=== PATIENT | male | born 1965 | race Hispanic/Latino ===

== ENCOUNTER 2020-02-03 06:37 | Day surgery (SDC) | payer MEDICARE ==
--- NOTE | 2020-02-02 16:25 | NUR ---
DIALYSIS PATIENT HAS CHAIR WITH ANOTHER PATIENT THAT HAS TESTED POSITIVE IN HOUSE WANTED TO SEE IF THEY ALSO CAME IN POSITIVE. LAB SAID NO NEGATIVE. PER WEND[facility] IN INFECTION CONTROL [facility]AY GIVE INFO TO DIALYSIS SINCE THEY ARE A [facility].
[~2020-02-03] VITALS: Ht 182.9 cm; Wt 63.0 kg
[~2020-02-03 06:37] MED LIST: SODIUM CHLORIDE 0.9% 1000ML 1,000 ML IV ONE
[2020-02-03 07:10] VITALS: BP 175/101
[2020-02-03] MEDS ORDERED: ESCI10TA54 PO (07:40)
[2020-02-03] MEDS ORDERED: INSLAN SQ (07:40)
[2020-02-03] MEDS ORDERED: ATOR-2 PO (07:40)
[2020-02-03] MEDS ORDERED: PREG50CA63 PO (07:40)
[2020-02-03] MEDS ORDERED: METO25TA6 PO (07:40)
[2020-02-03] MEDS ORDERED: INSU100I3 SQ (07:40)
[2020-02-03] MEDS ORDERED: BISA-72 PO (07:40)
[2020-02-03] MEDS ORDERED: SUCR500T PO (07:40)
[2020-02-03 07:42] LABS: POTASSIUM 4.7 mmol/L (3.5-5.1)
[2020-02-03 07:53] LABS: CREATININE 9.2 mg/dL (0.5-1.5)
[2020-02-03] MEDS ORDERED: PROPOFOL 10 MG/ML 20ML VIAL IV ONE ×2 (08:30→08:54)
[2020-02-03 09:01] VITALS: BP 127/43
[2020-02-03 09:08] VITALS: BP 111/39
[2020-02-03 09:16] VITALS: BP 109/38
[2020-02-03 09:22] VITALS: BP 116/88
[2020-02-03 09:28] VITALS: BP 138/58
== END 2020-02-03 09:45 | disposition home or self-care (01) ==
LOC: DAH 06:37
PROVIDERS: ATTEND Internal Medicine Gastroenterology
DX: Z12.11 Encounter for screening for malignant neoplasm of colon (principal); D12.4 Benign neoplasm of descending colon; K63.89 Other specified diseases of intestine; F32.9 Major depressive disorder, single episode, unspecified; F41.9 Anxiety disorder, unspecified; E11.22 Type 2 diabetes mellitus with diabetic chronic kidney disease; I12.0 Hypertensive chronic kidney disease with stage 5 chronic kidney disease or end stage renal disease; N18.6 End stage renal disease; Z86.73 Personal history of transient ischemic attack (TIA), and cerebral infarction without residual deficits; Z11.59 Encounter for screening for other viral diseases
CPT/HCPCS: 36415 ×2; 45385; 80048; 82948 ×2; 88305; A4215; A4221; A4222; A4223; A4606; A4615; A4663; J2704 ×2; J7030; U0003

== ENCOUNTER → 2021-02-15 | Outpatient (CLI) | payer MEDICARE ==
[~2021-02-15] MED LIST changes: +0.9%NACL 1000ML 1,000 ML IV ONE; +ATOR-2 PO; +BISA-72 PO; +ESCI-8 PO; +INSLAN SQ; +INSU100I3 SQ; +METO25TA6 PO; +PREG50CA63 PO; -SODIUM CHLORIDE 0.9% 1000ML 1,000 ML IV ONE; +SUCR500T PO
== END | disposition home or self-care (01) ==
LOC: DAH 08:58 → ENDO 02-20 08:58 → DAH 02-20 08:58 → ENDO 02-20 15:30 → DAH 02-20 15:30 → EDSTATUS 02-20 18:47
PROVIDERS: ATTEND Internal Medicine Gastroenterology
DX: Z01.818 Encounter for other preprocedural examination (principal); Z86.010 Personal history of colon polyps
CPT/HCPCS: 87635; C9803; 82948; J7030

== ENCOUNTER 2021-10-10 14:27 | Inpatient (IN) | payer MEDICARE ==
[~2021-10-10] VITALS: Ht 167.6 cm; Wt 63.1 kg
[~2021-10-10 14:27] MED LIST changes: -0.9%NACL 1000ML 1,000 ML IV ONE; +AMLO-258 PO; -ESCI-8 PO; +FLUT15.845 NS; +MELA10TA2 PO; +METO50TA18 PO; +MULT-1367 PO; +OXYM-30 NS
[2021-10-10 15:15] LABS: BASOPHILS % (AUTO) 0.4 % (0.0-5.0); HEMATOCRIT 35.7 % (42-54); LYMPHOCYTES % (AUTO) 16.1 % (21.0-51.0); MEAN CORPUSCULAR HEMOGLOBIN 27.4 pg (27.0-33.0); MEAN CORPUSCULAR HGB CONC 30.8 g/dL (32.0-36.0); MEAN CORPUSCULAR VOLUME 88.8 fL (79-99); MONOCYTES % (AUTO) 3.9 % (3.0-13.0); NEUTROPHILS % (AUTO) 77.7 % (40.0-77.0); PLATELET COUNT (AUTO) 296 K/uL (130-400); RED BLOOD CELL COUNT(AUTO) 4.02 MIL/uL (4.50-6.20); RED CELL DISTRIBUTION WIDTH 13.9 % (11.0-15.5); WHITE BLOOD COUNT (AUTO) 14.6 K/uL (4.8-10.8)
[2021-10-10 15:24] LABS: CREATININE 7.3 mg/dL (0.5-1.5); POTASSIUM 4.1 mmol/L (3.5-5.1)
[2021-10-10 15:33] LABS: ALBUMIN 2.6 g/dL (3.5-5.0); BILIRUBIN,TOTAL 0.4 mg/dL (0.2-1.0); TOTAL PROTEIN, SERUM 7.2 g/dL (6.0-8.3)
[2021-10-10 16:02] LABS: INR 0.99 (0.85-1.15); PROTHROMBIN TIME 10.8 SEC (9.6-11.6)
[2021-10-10] MEDS ORDERED: NITROGLYCERIN 0.4 MG SL TAB SL PRN (19:00)
[2021-10-10] MEDS ORDERED: ACETAMINOPHEN 325 MG TAB PO PRN (19:00)
[2021-10-10 20:25] LABS: HEMOGLOBIN A1C 5.1 % (4.0-6.0)
[2021-10-10 20:53] LABS: INR 0.98 (0.85-1.15); PROTHROMBIN TIME 10.7 SEC (9.6-11.6)
[2021-10-10] MEDS: INSULIN HUMULIN R 100 UNIT/ML 3ML SQ SCH (21:00)
[2021-10-10] MEDS: Sucroferric Oxyhydroxide (Velphoro) 1,000 MG PO SCH (21:00)
[2021-10-10 21:25] LABS: THYROID STIMULATING HORMONE 3.54 uIU/mL (0.36-3.74)
[2021-10-10] MEDS: FAMOTIDINE 20MG VIAL IV SCH (21:46)
[2021-10-10] MEDS: METOPROLOL TARTRATE 50 MG TAB PO SCH (21:47)
[2021-10-10] MEDS: ATORVASTATIN 40 MG TABLET PO SCH (21:47)
[2021-10-10] MEDS: HEPARIN 5,000 UNIT VIAL SQ SCH (21:47)
[2021-10-10] MEDS: LIDOCAINE 5% TOPICAL PATCH TP SCH (21:48)
[2021-10-10 22:55] VITALS: BP 142/90
[2021-10-11] VITALS (21 sets, daily range): BP systolic 90–148; BP diastolic 55–84
[2021-10-11 04:23] LABS: BASOPHILS % (AUTO) 0.7 % (0.0-5.0); EOSINOPHILS % (AUTO) 1.8 % (0.0-8.0); HEMATOCRIT 32.5 % (42-54); LYMPHOCYTES % (AUTO) 24.3 % (21.0-51.0); MEAN CORPUSCULAR HEMOGLOBIN 28.4 pg (27.0-33.0); MEAN CORPUSCULAR VOLUME 88.8 fL (79-99); NEUTROPHILS % (AUTO) 66.5 % (40.0-77.0); PLATELET COUNT (AUTO) 288 K/uL (130-400); RED BLOOD CELL COUNT(AUTO) 3.66 MIL/uL (4.50-6.20); RED CELL DISTRIBUTION WIDTH 13.8 % (11.0-15.5); WHITE BLOOD COUNT (AUTO) 10.7 K/uL (4.8-10.8)
[2021-10-11 05:00] LABS: ALBUMIN 2.5 g/dL (3.5-5.0); MAGNESIUM 2.2 mg/dL (1.80-2.40); PHOSPHORUS 6.5 mg/dL (2.5-4.9); POTASSIUM 3.5 mmol/L (3.5-5.1)
[2021-10-11 05:02] LABS: CREATININE 8.1 mg/dL (0.5-1.5)
[2021-10-11] MEDS: INSULIN HUMULIN R 100 UNIT/ML 3ML SQ SCH ×4 (06:43→21:00)
[2021-10-11] MEDS ORDERED: LIDOCAINE 5% TOPICAL PATCH TP SCH (09:00)
[2021-10-11] MEDS: Sucroferric Oxyhydroxide (Velphoro) 1,000 MG PO SCH ×3 (09:00→21:00)
[2021-10-11] MEDS ORDERED: ATORVASTATIN CALCIUM 40 MG PO SCH (09:00)
[2021-10-11] MEDS ORDERED: NON-FORMULARY MEDICATION 1 EACH (Amlodipine Besylate 10 MG) PO SCH (09:00)
[2021-10-11] MEDS ORDERED: ATORVASTATIN 40 MG TABLET PO SCH (09:00)
[2021-10-11] MEDS: AMLODIPINE 5 MG TAB PO SCH (10:37)
[2021-10-11] MEDS: METOPROLOL TARTRATE 50 MG TAB PO SCH ×2 (10:37→21:48)
[2021-10-11] MEDS: LIDOCAINE 5% TOPICAL PATCH TP SCH (10:38)
[2021-10-11] MEDS: HEPARIN 5,000 UNIT VIAL SQ SCH ×3 (10:51→21:49)
[2021-10-11] MEDS: ASPIRIN 81 MG EC TAB PO SCH (14:17)
[2021-10-11] MEDS: FAMOTIDINE 20MG VIAL IV SCH (21:48)
[2021-10-11] MEDS: ATORVASTATIN 40 MG TABLET PO SCH (21:48)
[2021-10-12 04:18] VITALS: BP 136/74
[2021-10-12] MEDS ORDERED: DEXTROSE 50%-WATER 50 ML DISP.SYRIN IV ONE (05:14)
[2021-10-12] MEDS: INSULIN HUMULIN R 100 UNIT/ML 3ML SQ SCH ×4 (07:27→21:00)
[2021-10-12 07:30] VITALS: BP 123/46
[2021-10-12] MEDS ORDERED: HYDROMORPHONE 0.5 MG SYG (0.5MG/0.5ML) IVP PRN (08:00)
[2021-10-12] MEDS ORDERED: ZOSYN 3.375GM +NS 50ML IV SCH (08:00)
[2021-10-12] MEDS: METOPROLOL TARTRATE 50 MG TAB PO SCH (09:00)
[2021-10-12] MEDS: Sucroferric Oxyhydroxide (Velphoro) 1,000 MG PO SCH ×3 (09:00→21:00)
[2021-10-12] MEDS: ASPIRIN 81 MG EC TAB PO SCH (09:00)
[2021-10-12] MEDS ORDERED: ZOSYN 3.375GM+NS 50ML 50 ML IV SCH (09:00)
[2021-10-12] MEDS: AMLODIPINE 5 MG TAB PO SCH (09:00)
[2021-10-12 11:20] VITALS: BP 99/53
[2021-10-12] MEDS: LIDOCAINE 5% TOPICAL PATCH TP SCH (12:01)
[2021-10-12] MEDS: HEPARIN 5,000 UNIT VIAL SQ SCH ×3 (12:13→21:57)
[2021-10-12 15:20] VITALS: BP 138/51
[2021-10-12 16:26] LABS: BASOPHILS % (AUTO) 0.5 % (0.0-5.0); EOSINOPHILS % (AUTO) 1.1 % (0.0-8.0); HEMATOCRIT 31.8 % (42-54); LYMPHOCYTES % (AUTO) 25.3 % (21.0-51.0); MEAN CORPUSCULAR HEMOGLOBIN 28.3 pg (27.0-33.0); MEAN CORPUSCULAR HGB CONC 32.1 g/dL (32.0-36.0); MEAN CORPUSCULAR VOLUME 88.3 fL (79-99); NEUTROPHILS % (AUTO) 66.4 % (40.0-77.0); PLATELET COUNT (AUTO) 297 K/uL (130-400); RED CELL DISTRIBUTION WIDTH 13.8 % (11.0-15.5)
[2021-10-12 16:39] LABS: CREATININE 6.2 mg/dL (0.5-1.5); POTASSIUM 3.6 mmol/L (3.5-5.1)
[2021-10-12 16:43] LABS: ALBUMIN 2.6 g/dL (3.5-5.0); BILIRUBIN,TOTAL 0.4 mg/dL (0.2-1.0); TOTAL PROTEIN, SERUM 6.9 g/dL (6.0-8.3)
[2021-10-12 16:44] LABS: ABG BASE EXCESS 1.1 mmol/L (-2.0-3.0); ABG HCO3 25.5 mmol/L (21.0-28.0); ABG OXYGEN SATURATION 95.9 % (95.0-99.0); ABG PCO2 40 mmHg (35-48)
[2021-10-12 17:00] LABS: B-TYPE NATRIURETIC PEPTIDE 303 pg/mL (0-100)
[2021-10-12 20:16] VITALS: BP 119/50
[2021-10-12] MEDS: FAMOTIDINE 20MG VIAL IV SCH (21:55)
[2021-10-12] MEDS: ATORVASTATIN 40 MG TABLET PO SCH (21:56)
[2021-10-13] VITALS (23 sets, daily range): BP systolic 85–169; BP diastolic 52–95
[2021-10-13] MEDS: METOPROLOL TARTRATE 50 MG TAB PO SCH ×3 (00:42→21:00)
[2021-10-13 06:07] LABS: BASOPHILS % (AUTO) 0.7 % (0.0-5.0); EOSINOPHILS % (AUTO) 1.3 % (0.0-8.0); HEMATOCRIT 32.1 % (42-54); LYMPHOCYTES % (AUTO) 28.4 % (21.0-51.0); MEAN CORPUSCULAR HEMOGLOBIN 27.8 pg (27.0-33.0); MEAN CORPUSCULAR HGB CONC 31.8 g/dL (32.0-36.0); MEAN CORPUSCULAR VOLUME 87.5 fL (79-99); MONOCYTES % (AUTO) 6.8 % (3.0-13.0); NEUTROPHILS % (AUTO) 62.1 % (40.0-77.0); PLATELET COUNT (AUTO) 326 K/uL (130-400); RED BLOOD CELL COUNT(AUTO) 3.67 MIL/uL (4.50-6.20); RED CELL DISTRIBUTION WIDTH 13.6 % (11.0-15.5); WHITE BLOOD COUNT (AUTO) 9.2 K/uL (4.8-10.8)
[2021-10-13 06:23] LABS: ALBUMIN 2.5 g/dL (3.5-5.0); BILIRUBIN,TOTAL 0.4 mg/dL (0.2-1.0); CREATININE 7.2 mg/dL (0.5-1.5); PHOSPHORUS 5.3 mg/dL (2.5-4.9); POTASSIUM 3.6 mmol/L (3.5-5.1); TOTAL PROTEIN, SERUM 6.9 g/dL (6.0-8.3)
[2021-10-13] MEDS: INSULIN HUMULIN R 100 UNIT/ML 3ML SQ SCH ×4 (06:30→21:00)
[2021-10-13] MEDS: Sucroferric Oxyhydroxide (Velphoro) 1,000 MG PO SCH ×3 (09:00→20:04)
[2021-10-13] MEDS: AMLODIPINE 5 MG TAB PO SCH (10:10)
[2021-10-13] MEDS: ASPIRIN 81 MG EC TAB PO SCH (10:10)
[2021-10-13] MEDS: LIDOCAINE 5% TOPICAL PATCH TP SCH (10:11)
[2021-10-13] MEDS: HEPARIN 5,000 UNIT VIAL SQ SCH ×2 (14:00→22:03)
[2021-10-13] MEDS ORDERED: PHARMACY COMMUNICATION MISC SCH (17:00)
[2021-10-13] MEDS: HEPARIN 5,000 UNIT VIAL IJ PRN (17:34)
[2021-10-13] MEDS ORDERED: METOPROLOL TARTRATE 25 MG TAB ONE (21:00)
[2021-10-13] MEDS: ATORVASTATIN 40 MG TABLET PO SCH (21:04)
[2021-10-13] MEDS: FAMOTIDINE 20MG VIAL IV SCH (21:04)
[2021-10-14 00:20] VITALS: BP 129/50
[2021-10-14 04:20] VITALS: BP 113/55
[2021-10-14 04:31] LABS: BASOPHILS % (AUTO) 0.8 % (0.0-5.0); HEMATOCRIT 34.5 % (42-54); LYMPHOCYTES % (AUTO) 25.3 % (21.0-51.0); MEAN CORPUSCULAR HEMOGLOBIN 28.3 pg (27.0-33.0); MEAN CORPUSCULAR HGB CONC 32.8 g/dL (32.0-36.0); MEAN CORPUSCULAR VOLUME 86.3 fL (79-99); MONOCYTES % (AUTO) 7.1 % (3.0-13.0); NEUTROPHILS % (AUTO) 65.2 % (40.0-77.0); PLATELET COUNT (AUTO) 375 K/uL (130-400); RED CELL DISTRIBUTION WIDTH 13.5 % (11.0-15.5); WHITE BLOOD COUNT (AUTO) 9.3 K/uL (4.8-10.8)
[2021-10-14 04:50] LABS: ALBUMIN 2.8 g/dL (3.5-5.0); BILIRUBIN,TOTAL 0.4 mg/dL (0.2-1.0); CREATININE 4.8 mg/dL (0.5-1.5); POTASSIUM 3.6 mmol/L (3.5-5.1); TOTAL PROTEIN, SERUM 7.3 g/dL (6.0-8.3)
[2021-10-14] MEDS: INSULIN HUMULIN R 100 UNIT/ML 3ML SQ SCH ×4 (06:15→21:00)
[2021-10-14] MEDS: HEPARIN 5,000 UNIT VIAL SQ SCH ×3 (06:28→21:38)
[2021-10-14 07:59] VITALS: BP 134/76
[2021-10-14] MEDS: Sucroferric Oxyhydroxide (Velphoro) 1,000 MG PO SCH ×3 (09:00→19:44)
[2021-10-14] MEDS: LIDOCAINE 5% TOPICAL PATCH TP SCH (10:29)
[2021-10-14] MEDS: AMLODIPINE 5 MG TAB PO SCH (10:29)
[2021-10-14] MEDS: ASPIRIN 81 MG EC TAB PO SCH (10:29)
[2021-10-14] MEDS: METOPROLOL TARTRATE 50 MG TAB PO SCH ×2 (10:29→22:03)
[2021-10-14 11:49] VITALS: BP 136/70
[2021-10-14 16:58] VITALS: BP 122/68
[2021-10-14 20:16] VITALS: BP 107/72
[2021-10-14] MEDS: FAMOTIDINE 20MG VIAL IV SCH (22:03)
[2021-10-14] MEDS: ATORVASTATIN 40 MG TABLET PO SCH (22:03)
[2021-10-14] MEDS: LACTULOSE 20 GM/30 ML UDCUP PO SCH (22:04)
[2021-10-15] VITALS (19 sets, daily range): BP systolic 87–152; BP diastolic 57–81
[2021-10-15 04:57] LABS: HEMATOCRIT 34.4 % (42-54); MEAN CORPUSCULAR HEMOGLOBIN 27.7 pg (27.0-33.0); MEAN CORPUSCULAR VOLUME 86.6 fL (79-99); PLATELET COUNT (AUTO) 394 K/uL (130-400); RED BLOOD CELL COUNT(AUTO) 3.97 MIL/uL (4.50-6.20); RED CELL DISTRIBUTION WIDTH 13.4 % (11.0-15.5); WHITE BLOOD COUNT (AUTO) 12.3 K/uL (4.8-10.8)
[2021-10-15 05:10] LABS: ALBUMIN 2.9 g/dL (3.5-5.0); BILIRUBIN,TOTAL 0.4 mg/dL (0.2-1.0); CREATININE 6.6 mg/dL (0.5-1.5); MAGNESIUM 2.2 mg/dL (1.80-2.40); PHOSPHORUS 4.6 mg/dL (2.5-4.9); POTASSIUM 3.8 mmol/L (3.5-5.1); TOTAL PROTEIN, SERUM 7.5 g/dL (6.0-8.3)
[2021-10-15 06:11] LABS: BAND NEUTROPHILS % (MANUAL) 2 % (0-2); EOSINOPHILS % (MANUAL) 1 % (1-6); LYMPHOCYTES % (MANUAL) 13 % (22-44); MAN.DIFF COMMENT-IMPRESSION MANUAL DIFFERENTIAL; MONOCYTES % (MANUAL) 3 % (2-9); REACTIVE LYMPHOCYTES 2 % (0-0); SEGMENTED NEUTROPHILS % 79 % (40-70)
[2021-10-15] MEDS: INSULIN HUMULIN R 100 UNIT/ML 3ML SQ SCH ×4 (06:11→21:00)
[2021-10-15 06:12] LABS: PLATELET MORPHOLOGY COMMENT ADEQUATE
[2021-10-15] MEDS: HEPARIN 5,000 UNIT VIAL SQ SCH ×3 (06:27→22:19)
[2021-10-15] MEDS: ACETAMINOPHEN 325 MG TAB PO PRN ×2 (06:29→16:35)
[2021-10-15] MEDS: Sucroferric Oxyhydroxide (Velphoro) 1,000 MG PO SCH ×3 (09:00→21:00)
[2021-10-15] MEDS: ASPIRIN 81 MG EC TAB PO SCH (09:08)
[2021-10-15] MEDS: METOPROLOL TARTRATE 50 MG TAB PO SCH ×2 (09:08→22:19)
[2021-10-15] MEDS: LACTULOSE 20 GM/30 ML UDCUP PO SCH ×2 (09:08→22:18)
[2021-10-15] MEDS: LIDOCAINE 5% TOPICAL PATCH TP SCH (09:08)
[2021-10-15] MEDS: AMLODIPINE 5 MG TAB PO SCH (09:08)
[2021-10-15] MEDS: HEPARIN 5,000 UNIT VIAL IJ PRN (22:05)
[2021-10-15] MEDS: FAMOTIDINE 20MG VIAL IV SCH (22:18)
[2021-10-15] MEDS: ATORVASTATIN 40 MG TABLET PO SCH (22:18)
[2021-10-16] VITALS: BP_SYST 119; BP_SYST 126; BP_DIAS 76; BP_DIAS 77
[2021-10-16 04:00] VITALS: BP 126/76
[2021-10-16] MEDS: HEPARIN 5,000 UNIT VIAL SQ SCH ×3 (05:42→21:59)
[2021-10-16] MEDS: INSULIN HUMULIN R 100 UNIT/ML 3ML SQ SCH ×4 (06:14→21:00)
[2021-10-16] MEDS: Sucroferric Oxyhydroxide (Velphoro) 1,000 MG PO SCH ×3 (09:00→21:00)
[2021-10-16 09:25] VITALS: BP 119/74
[2021-10-16] MEDS: METOPROLOL TARTRATE 50 MG TAB PO SCH ×2 (09:57→21:41)
[2021-10-16] MEDS: AMLODIPINE 5 MG TAB PO SCH (09:57)
[2021-10-16] MEDS: ASPIRIN 81 MG EC TAB PO SCH (09:57)
[2021-10-16] MEDS: LACTULOSE 20 GM/30 ML UDCUP PO SCH ×2 (09:58→21:40)
[2021-10-16] MEDS: LIDOCAINE 5% TOPICAL PATCH TP SCH (09:58)
[2021-10-16 11:07] VITALS: BP 138/85
[2021-10-16 16:09] VITALS: BP 115/70
[2021-10-16 20:00] VITALS: BP 125/75
[2021-10-16] MEDS: FAMOTIDINE 20MG VIAL IV SCH (21:40)
[2021-10-16] MEDS: ATORVASTATIN 40 MG TABLET PO SCH (21:41)
[2021-10-16] MEDS: ACETAMINOPHEN 325 MG TAB PO PRN (22:02)
[2021-10-17] VITALS (20 sets, daily range): BP systolic 94–140; BP diastolic 42–100
[2021-10-17] MEDS: HEPARIN 5,000 UNIT VIAL SQ SCH ×3 (06:00→21:09)
[2021-10-17] MEDS: INSULIN HUMULIN R 100 UNIT/ML 3ML SQ SCH ×4 (06:52→21:00)
[2021-10-17] MEDS: Sucroferric Oxyhydroxide (Velphoro) 1,000 MG PO SCH ×3 (09:00→21:00)
[2021-10-17] MEDS: LIDOCAINE 5% TOPICAL PATCH TP SCH (09:00)
[2021-10-17 09:16] LABS: CREATININE 6.7 mg/dL (0.5-1.5); POTASSIUM 3.8 mmol/L (3.5-5.1)
[2021-10-17] MEDS: METOPROLOL TARTRATE 50 MG TAB PO SCH ×2 (09:48→21:04)
[2021-10-17] MEDS: LACTULOSE 20 GM/30 ML UDCUP PO SCH ×2 (09:48→21:02)
[2021-10-17] MEDS: ASPIRIN 81 MG EC TAB PO SCH (09:48)
[2021-10-17] MEDS: AMLODIPINE 5 MG TAB PO SCH (09:48)
[2021-10-17 13:09] LABS: HEMATOCRIT 35.7 % (42-54); MEAN CORPUSCULAR HEMOGLOBIN 28.2 pg (27.0-33.0); MEAN CORPUSCULAR HGB CONC 32.2 g/dL (32.0-36.0); MEAN CORPUSCULAR VOLUME 87.5 fL (79-99); RED BLOOD CELL COUNT(AUTO) 4.08 MIL/uL (4.50-6.20); RED CELL DISTRIBUTION WIDTH 13.9 % (11.0-15.5); WHITE BLOOD COUNT (AUTO) 17.3 K/uL (4.8-10.8)
[2021-10-17 14:21] LABS: HEPATITIS B SURFACE ANTIGEN Non-Reactive (Negative)
[2021-10-17] MEDS: HEPARIN 5,000 UNIT VIAL IJ PRN (18:15)
[2021-10-17] MEDS ORDERED: CEFTRIAXONE 1G VIAL IVP SCH (20:30)
[2021-10-17] MEDS: FAMOTIDINE 20MG VIAL IV SCH (21:02)
[2021-10-17] MEDS: ATORVASTATIN 40 MG TABLET PO SCH (21:02)
[2021-10-17] MEDS: ACETAMINOPHEN 325 MG TAB PO PRN (21:05)
[2021-10-18] VITALS: BP 118/73
[2021-10-18 03:57] LABS: HEMATOCRIT 38.4 % (42-54); MEAN CORPUSCULAR HEMOGLOBIN 27.9 pg (27.0-33.0); MEAN CORPUSCULAR HGB CONC 31.5 g/dL (32.0-36.0); MEAN CORPUSCULAR VOLUME 88.7 fL (79-99); RED BLOOD CELL COUNT(AUTO) 4.33 MIL/uL (4.50-6.20); WHITE BLOOD COUNT (AUTO) 23.7 K/uL (4.8-10.8)
[2021-10-18 04:00] VITALS: BP 96/61
[2021-10-18 04:05] LABS: CREATININE 4.6 mg/dL (0.5-1.5); POTASSIUM 3.5 mmol/L (3.5-5.1)
[2021-10-18] MEDS: HEPARIN 5,000 UNIT VIAL SQ SCH ×3 (05:34→21:42)
[2021-10-18] MEDS: INSULIN HUMULIN R 100 UNIT/ML 3ML SQ SCH ×4 (05:35→21:43)
[2021-10-18 08:00] VITALS: BP 89/62
[2021-10-18] MEDS: Sucroferric Oxyhydroxide (Velphoro) 1,000 MG PO SCH ×3 (09:00→21:00)
[2021-10-18] MEDS ORDERED: PHARMACY COMMUNICATION MISC SCH (09:30)
[2021-10-18] MEDS: METOPROLOL TARTRATE 50 MG TAB PO SCH ×2 (10:09→21:40)
[2021-10-18] MEDS: AMLODIPINE 5 MG TAB PO SCH (10:09)
[2021-10-18] MEDS: LACTULOSE 20 GM/30 ML UDCUP PO SCH ×2 (10:09→21:41)
[2021-10-18] MEDS: ASPIRIN 81 MG EC TAB PO SCH (10:10)
[2021-10-18] MEDS: LIDOCAINE 5% TOPICAL PATCH TP SCH (10:10)
[2021-10-18 12:00] VITALS: BP 104/63
[2021-10-18] MEDS ORDERED: VANCOMYCIN 1G/250ML KIT 250 ML IV SCH (12:00)
[2021-10-18] MEDS ORDERED: VANCOMYCIN 1G VIAL IVPB ONE (12:00)
[2021-10-18 16:00] VITALS: BP 92/64
[2021-10-18 20:47] VITALS: BP 113/70
[2021-10-18] MEDS: ATORVASTATIN 40 MG TABLET PO SCH (21:40)
[2021-10-18] MEDS: FAMOTIDINE 20MG VIAL IV SCH (21:41)
[2021-10-19] VITALS (18 sets, daily range): BP systolic 78–125; BP diastolic 41–76
[2021-10-19 04:44] LABS: HEMATOCRIT 38.4 % (42-54); MEAN CORPUSCULAR HEMOGLOBIN 27.8 pg (27.0-33.0); MEAN CORPUSCULAR HGB CONC 31.5 g/dL (32.0-36.0); MEAN CORPUSCULAR VOLUME 88.1 fL (79-99); RED BLOOD CELL COUNT(AUTO) 4.36 MIL/uL (4.50-6.20); RED CELL DISTRIBUTION WIDTH 14.6 % (11.0-15.5); WHITE BLOOD COUNT (AUTO) 28.2 K/uL (4.8-10.8)
[2021-10-19 04:52] LABS: ALBUMIN 2.5 g/dL (3.5-5.0); CREATININE 6.5 mg/dL (0.5-1.5); POTASSIUM 4.4 mmol/L (3.5-5.1)
[2021-10-19] MEDS: HEPARIN 5,000 UNIT VIAL SQ SCH ×3 (05:54→21:10)
[2021-10-19] MEDS: INSULIN HUMULIN R 100 UNIT/ML 3ML SQ SCH ×4 (06:49→21:11)
[2021-10-19] MEDS: BALSAM PERU/CASTOR OIL 60 GM TUBE TP SCH ×3 (09:00→21:06)
[2021-10-19] MEDS: LIDOCAINE 5% TOPICAL PATCH TP SCH (09:00)
[2021-10-19] MEDS: ASPIRIN 81 MG EC TAB PO SCH (09:00)
[2021-10-19] MEDS: LACTULOSE 20 GM/30 ML UDCUP PO SCH ×2 (09:00→21:04)
[2021-10-19] MEDS: Sucroferric Oxyhydroxide (Velphoro) 1,000 MG PO SCH ×3 (09:00→21:00)
[2021-10-19] MEDS: FLUCONAZOLE 200 MG/NS 100 ML 100 ML IV SCH (12:30)
[2021-10-19] MEDS ORDERED: VANCOMYCIN PROTOCOL PER PHARMACY IV SCH (12:30)
[2021-10-19] MEDS ORDERED: FLUCONAZOLE 400 MG/NS 200 ML 200 ML IV SCH (12:30)
[2021-10-19] MEDS: HEPARIN 5,000 UNIT VIAL IJ PRN (13:37)
[2021-10-19] MEDS: GENTAMICIN 15 GM CREAM TP SCH ×2 (14:00→21:06)
[2021-10-19 14:15] LABS: CRP QUANTITATIVE 343.4 mg/L (0.00-9.0)
[2021-10-19] MEDS: VANCOMYCIN 1G/250ML KIT 250 ML IV SCH (14:50)
[2021-10-19] MEDS: METRONIDAZOLE 500MG/100ML BAG 100 ML IVPB SCH ×2 (15:14→21:06)
[2021-10-19] MEDS: ZOSYN 3.375GM +NS 50ML IV SCH ×2 (15:28→23:56)
[2021-10-19] MEDS: ATORVASTATIN 40 MG TABLET PO SCH (21:04)
[2021-10-19] MEDS: FAMOTIDINE 20MG VIAL IV SCH (21:04)
[2021-10-20] VITALS (7 sets, daily range): BP systolic 91–113; BP diastolic 56–67
[2021-10-20 04:30] LABS: HEMATOCRIT 33.8 % (42-54); MEAN CORPUSCULAR HEMOGLOBIN 28.3 pg (27.0-33.0); MEAN CORPUSCULAR VOLUME 88.7 fL (79-99); RED BLOOD CELL COUNT(AUTO) 3.81 MIL/uL (4.50-6.20); RED CELL DISTRIBUTION WIDTH 14.7 % (11.0-15.5)
[2021-10-20 05:07] LABS: ALBUMIN 2.5 g/dL (3.5-5.0); CREATININE 5.2 mg/dL (0.5-1.5); POTASSIUM 3.6 mmol/L (3.5-5.1)
[2021-10-20] MEDS: METRONIDAZOLE 500MG/100ML BAG 100 ML IVPB SCH (05:37)
[2021-10-20] MEDS: HEPARIN 5,000 UNIT VIAL SQ SCH ×3 (05:43→22:01)
[2021-10-20] MEDS: INSULIN HUMULIN R 100 UNIT/ML 3ML SQ SCH ×4 (06:17→20:53)
[2021-10-20] MEDS: ASPIRIN 81 MG EC TAB PO SCH (08:26)
[2021-10-20] MEDS: ACETAMINOPHEN 325 MG TAB PO PRN (08:27)
[2021-10-20] MEDS: LIDOCAINE 5% TOPICAL PATCH TP SCH (08:27)
[2021-10-20] MEDS: BALSAM PERU/CASTOR OIL 60 GM TUBE TP SCH ×3 (08:28→20:36)
[2021-10-20] MEDS: Sucroferric Oxyhydroxide (Velphoro) 1,000 MG PO SCH ×3 (09:00→20:38)
[2021-10-20] MEDS: GENTAMICIN 15 GM CREAM TP SCH ×2 (10:17→20:35)
[2021-10-20] MEDS: ZOSYN 3.375GM +NS 50ML IV SCH (11:58)
[2021-10-20] MEDS: FAMOTIDINE 20MG VIAL IV SCH (20:34)
[2021-10-20] MEDS: ATORVASTATIN 40 MG TABLET PO SCH (20:35)
[2021-10-21] MEDS: ZOSYN 3.375GM +NS 50ML IV SCH ×2 (00:32→11:53)
[2021-10-21 04:02] VITALS: BP 90/57
[2021-10-21 04:42] LABS: HEMATOCRIT 32.9 % (42-54); MEAN CORPUSCULAR HEMOGLOBIN 28.5 pg (27.0-33.0); MEAN CORPUSCULAR HGB CONC 31.9 g/dL (32.0-36.0); MEAN CORPUSCULAR VOLUME 89.4 fL (79-99); PLATELET COUNT (AUTO) 389 K/uL (130-400); RED BLOOD CELL COUNT(AUTO) 3.68 MIL/uL (4.50-6.20); RED CELL DISTRIBUTION WIDTH 14.6 % (11.0-15.5); WHITE BLOOD COUNT (AUTO) 9.3 K/uL (4.8-10.8)
[2021-10-21 05:09] LABS: ALBUMIN 2.3 g/dL (3.5-5.0); BILIRUBIN,TOTAL 0.4 mg/dL (0.2-1.0); CREATININE 6.6 mg/dL (0.5-1.5); PHOSPHORUS 4.5 mg/dL (2.5-4.9); POTASSIUM 3.4 mmol/L (3.5-5.1); TOTAL PROTEIN, SERUM 7.3 g/dL (6.0-8.3)
[2021-10-21 05:11] LABS: BAND NEUTROPHILS % (MANUAL) 12 % (0-2); EOSINOPHILS % (MANUAL) 2 % (1-6); LYMPHOCYTES % (MANUAL) 14 % (22-44); MONOCYTES % (MANUAL) 8 % (2-9); SEGMENTED NEUTROPHILS % 64 % (40-70)
[2021-10-21 05:12] LABS: MAN.DIFF COMMENT-IMPRESSION MANUAL DIFFERENTIAL; PLATELET MORPHOLOGY COMMENT ADEQUATE
[2021-10-21] MEDS: HEPARIN 5,000 UNIT VIAL SQ SCH ×3 (05:33→22:00)
[2021-10-21] MEDS: INSULIN HUMULIN R 100 UNIT/ML 3ML SQ SCH ×4 (06:33→21:00)
[2021-10-21 07:10] VITALS: BP 84/43
[2021-10-21] MEDS: Sucroferric Oxyhydroxide (Velphoro) 1,000 MG PO SCH ×3 (09:00→21:00)
[2021-10-21] MEDS: LIDOCAINE 5% TOPICAL PATCH TP SCH (09:09)
[2021-10-21] MEDS: ASPIRIN 81 MG EC TAB PO SCH (09:09)
[2021-10-21] MEDS: BALSAM PERU/CASTOR OIL 60 GM TUBE TP SCH ×3 (09:10→22:07)
[2021-10-21] MEDS: GENTAMICIN 15 GM CREAM TP SCH ×2 (09:10→22:07)
[2021-10-21] MEDS: FLUCONAZOLE 200 MG/NS 100 ML 100 ML IV SCH (11:00)
[2021-10-21 11:35] VITALS: BP 99/51
[2021-10-21] MEDS: VANCOMYCIN 1G/250ML KIT 250 ML IV SCH (12:26)
[2021-10-21] MEDS: MIDODRINE HCL 5 MG TABLET PO SCH ×3 (14:12→22:15)
[2021-10-21 15:10] VITALS: BP 133/72
[2021-10-21 20:00] VITALS: BP 142/85
[2021-10-21] MEDS: FAMOTIDINE 20MG VIAL IV SCH (22:05)
[2021-10-21] MEDS: ATORVASTATIN 40 MG TABLET PO SCH (22:05)
[2021-10-21] MEDS: ACETAMINOPHEN 325 MG TAB PO PRN (22:15)
[2021-10-22] VITALS (23 sets, daily range): BP systolic 80–155; BP diastolic 33–96
[2021-10-22] MEDS: ZOSYN 3.375GM +NS 50ML IV SCH ×2 (00:51→12:30)
[2021-10-22 05:08] LABS: MEAN CORPUSCULAR HEMOGLOBIN 28.1 pg (27.0-33.0); MEAN CORPUSCULAR HGB CONC 31.2 g/dL (32.0-36.0); MEAN CORPUSCULAR VOLUME 90.2 fL (79-99); NUCLEATED RED BLOOD CELLS 0.2 % (0.0-0.19); PLATELET COUNT (AUTO) 416 K/uL (130-400); RED BLOOD CELL COUNT(AUTO) 3.66 MIL/uL (4.50-6.20); RED CELL DISTRIBUTION WIDTH 14.5 % (11.0-15.5); WHITE BLOOD COUNT (AUTO) 12.4 K/uL (4.8-10.8)
[2021-10-22 05:21] LABS: BAND NEUTROPHILS % (MANUAL) 7 % (0-2); EOSINOPHILS % (MANUAL) 2 % (1-6); LYMPHOCYTES % (MANUAL) 13 % (22-44); MAN.DIFF COMMENT-IMPRESSION MANUAL DIFFERENTIAL; MONOCYTES % (MANUAL) 9 % (2-9); PLATELET MORPHOLOGY COMMENT ADEQUATE; SEGMENTED NEUTROPHILS % 69 % (40-70)
[2021-10-22 05:24] LABS: CREATININE 7.5 mg/dL (0.5-1.5); PHOSPHORUS 4.8 mg/dL (2.5-4.9); POTASSIUM 3.3 mmol/L (3.5-5.1)
[2021-10-22] MEDS: INSULIN HUMULIN R 100 UNIT/ML 3ML SQ SCH ×4 (06:40→21:00)
[2021-10-22] MEDS: Sucroferric Oxyhydroxide (Velphoro) 1,000 MG PO SCH ×3 (09:00→21:00)
[2021-10-22] MEDS: MIDODRINE HCL 5 MG TABLET PO SCH ×3 (10:06→21:06)
[2021-10-22] MEDS: LIDOCAINE 5% TOPICAL PATCH TP SCH (10:06)
[2021-10-22] MEDS: BALSAM PERU/CASTOR OIL 60 GM TUBE TP SCH ×3 (10:06→21:07)
[2021-10-22] MEDS: ASPIRIN 81 MG EC TAB PO SCH (10:06)
[2021-10-22] MEDS: GENTAMICIN 15 GM CREAM TP SCH ×2 (10:06→21:07)
[2021-10-22] MEDS: HEPARIN 5,000 UNIT VIAL IJ PRN (15:53)
[2021-10-22] MEDS: ATORVASTATIN 40 MG TABLET PO SCH (21:06)
[2021-10-22] MEDS: FAMOTIDINE 20MG VIAL IV SCH (21:07)
[2021-10-22] MEDS: ACETAMINOPHEN 325 MG TAB PO PRN (21:08)
[2021-10-23] VITALS: BP 113/72
[2021-10-23] MEDS: ZOSYN 3.375GM +NS 50ML IV SCH ×3 (01:24→23:47)
[2021-10-23 04:00] VITALS: BP 91/71
[2021-10-23 04:36] LABS: HEMATOCRIT 33.1 % (42-54); MEAN CORPUSCULAR VOLUME 87.3 fL (79-99); PLATELET COUNT (AUTO) 384 K/uL (130-400); RED BLOOD CELL COUNT(AUTO) 3.79 MIL/uL (4.50-6.20); RED CELL DISTRIBUTION WIDTH 14.2 % (11.0-15.5); WHITE BLOOD COUNT (AUTO) 12.6 K/uL (4.8-10.8)
[2021-10-23 04:59] LABS: ALBUMIN 2.2 g/dL (3.5-5.0); BILIRUBIN,TOTAL 0.4 mg/dL (0.2-1.0); CREATININE 4.6 mg/dL (0.5-1.5); POTASSIUM 3.3 mmol/L (3.5-5.1); TOTAL PROTEIN, SERUM 7.2 g/dL (6.0-8.3)
[2021-10-23 05:39] LABS: BAND NEUTROPHILS % (MANUAL) 4 % (0-2); BASOPHILS % (MANUAL) 1 % (0-2); LYMPHOCYTES % (MANUAL) 22 % (22-44); MAN.DIFF COMMENT-IMPRESSION MANUAL DIFFERENTIAL; MONOCYTES % (MANUAL) 9 % (2-9); PLATELET MORPHOLOGY COMMENT ADEQUATE; REACTIVE LYMPHOCYTES 3 % (0-0); SEGMENTED NEUTROPHILS % 61 % (40-70)
[2021-10-23] MEDS: INSULIN HUMULIN R 100 UNIT/ML 3ML SQ SCH ×4 (06:46→20:12)
[2021-10-23] MEDS: Sucroferric Oxyhydroxide (Velphoro) 1,000 MG PO SCH ×3 (08:20→20:12)
[2021-10-23] MEDS: ASPIRIN 81 MG EC TAB PO SCH (08:20)
[2021-10-23] MEDS: MIDODRINE HCL 5 MG TABLET PO SCH ×3 (08:20→20:11)
[2021-10-23] MEDS: GENTAMICIN 15 GM CREAM TP SCH ×2 (08:21→20:13)
[2021-10-23] MEDS: LIDOCAINE 5% TOPICAL PATCH TP SCH (08:22)
[2021-10-23] MEDS: BALSAM PERU/CASTOR OIL 60 GM TUBE TP SCH ×3 (08:22→20:12)
[2021-10-23] MEDS: FLUCONAZOLE 200 MG/NS 100 ML 100 ML IV SCH (12:30)
[2021-10-23] MEDS: VANCOMYCIN 1G/250ML KIT 250 ML IV SCH (13:00)
[2021-10-23 13:03] VITALS: BP 93/76
[2021-10-23 17:21] VITALS: BP_SYST 118; BP_SYST 147; BP_DIAS 67; BP_DIAS 71
[2021-10-23 20:00] VITALS: BP 144/75
[2021-10-23] MEDS: ATORVASTATIN 40 MG TABLET PO SCH (20:11)
[2021-10-23] MEDS: FAMOTIDINE 20MG VIAL IV SCH (20:12)
[2021-10-24] VITALS (21 sets, daily range): BP systolic 86–157; BP diastolic 46–87
[2021-10-24 04:51] LABS: BASOPHILS % (AUTO) 0.3 % (0.0-5.0); EOSINOPHILS % (AUTO) 1.1 % (0.0-8.0); HEMATOCRIT 31.8 % (42-54); LYMPHOCYTES % (AUTO) 19.7 % (21.0-51.0); MEAN CORPUSCULAR HEMOGLOBIN 29.1 pg (27.0-33.0); MEAN CORPUSCULAR HGB CONC 32.7 g/dL (32.0-36.0); MEAN CORPUSCULAR VOLUME 88.8 fL (79-99); MONOCYTES % (AUTO) 11.3 % (3.0-13.0); NEUTROPHILS % (AUTO) 61.8 % (40.0-77.0); PLATELET COUNT (AUTO) 412 K/uL (130-400); RED BLOOD CELL COUNT(AUTO) 3.58 MIL/uL (4.50-6.20); RED CELL DISTRIBUTION WIDTH 14.2 % (11.0-15.5); WHITE BLOOD COUNT (AUTO) 11.7 K/uL (4.8-10.8)
[2021-10-24 05:12] LABS: ALBUMIN 2.2 g/dL (3.5-5.0); BILIRUBIN,TOTAL 0.4 mg/dL (0.2-1.0); CREATININE 6.2 mg/dL (0.5-1.5); POTASSIUM 3.2 mmol/L (3.5-5.1)
[2021-10-24] MEDS: INSULIN HUMULIN R 100 UNIT/ML 3ML SQ SCH ×3 (05:17→16:30)
[2021-10-24] MEDS: Sucroferric Oxyhydroxide (Velphoro) 1,000 MG PO SCH ×2 (08:29→14:00)
[2021-10-24] MEDS: MIDODRINE HCL 5 MG TABLET PO SCH ×2 (08:33→14:56)
[2021-10-24] MEDS: ASPIRIN 81 MG EC TAB PO SCH (08:36)
[2021-10-24] MEDS: LIDOCAINE 5% TOPICAL PATCH TP SCH (08:44)
[2021-10-24] MEDS: BALSAM PERU/CASTOR OIL 60 GM TUBE TP SCH ×2 (08:53→14:58)
[2021-10-24] MEDS: GENTAMICIN 15 GM CREAM TP SCH (08:54)
[2021-10-24] MEDS: ZOSYN 3.375GM +NS 50ML IV SCH (12:30)
[2021-10-24] MEDS ORDERED: AEC81 PO (16:55)
== END 2021-10-24 20:58 | DRG 64 ==
LOC: EDH 14:27 → EDHIP 18:33 → 4CH 23:05
PROVIDERS: ADMIT Internal Medicine; ATTEND Internal Medicine
PROC: 5A1D70Z Performance of Urinary Filtration, Intermittent, Less than 6 Hours Per Day (ICD-10-PCS; principal; 2021-10-11)
PROC: 5A1D70Z Performance of Urinary Filtration, Intermittent, Less than 6 Hours Per Day (ICD-10-PCS; 2021-10-13)
PROC: 5A1D70Z Performance of Urinary Filtration, Intermittent, Less than 6 Hours Per Day (ICD-10-PCS; 2021-10-15)
PROC: 5A1D70Z Performance of Urinary Filtration, Intermittent, Less than 6 Hours Per Day (ICD-10-PCS; 2021-10-17)
PROC: 5A1D70Z Performance of Urinary Filtration, Intermittent, Less than 6 Hours Per Day (ICD-10-PCS; 2021-10-19)
PROC: 5A1D70Z Performance of Urinary Filtration, Intermittent, Less than 6 Hours Per Day (ICD-10-PCS; 2021-10-22)
PROC: 5A1D70Z Performance of Urinary Filtration, Intermittent, Less than 6 Hours Per Day (ICD-10-PCS; 2021-10-24)
DX: I63.81 Other cerebral infarction due to occlusion or stenosis of small artery (principal); A41.9 Sepsis, unspecified organism; N18.6 End stage renal disease; I12.0 Hypertensive chronic kidney disease with stage 5 chronic kidney disease or end stage renal disease; G93.40 Encephalopathy, unspecified; S40.021A Contusion of right upper arm, initial encounter; S40.022A Contusion of left upper arm, initial encounter; S80.11XA Contusion of right lower leg, initial encounter; S80.12XA Contusion of left lower leg, initial encounter; E11.65 Type 2 diabetes mellitus with hyperglycemia; E11.22 Type 2 diabetes mellitus with diabetic chronic kidney disease; E11.51 Type 2 diabetes mellitus with diabetic peripheral angiopathy without gangrene; E78.00 Pure hypercholesterolemia, unspecified; E78.5 Hyperlipidemia, unspecified; H40.9 Unspecified glaucoma; M47.812 Spondylosis without myelopathy or radiculopathy, cervical region; D64.9 Anemia, unspecified; E11.319 Type 2 diabetes mellitus with unspecified diabetic retinopathy without macular edema; G31.9 Degenerative disease of nervous system, unspecified; H54.8 Legal blindness, as defined in USA; L89.322 Pressure ulcer of left buttock, stage 2; L89.152 Pressure ulcer of sacral region, stage 2; R62.7 Adult failure to thrive; W19.XXXA Unspecified fall, initial encounter; Y93.89 Activity, other specified; Y92.89 Other specified places as the place of occurrence of the external cause; Z68.22 Body mass index [BMI] 22.0-22.9, adult; Y99.8 Other external cause status; Z99.2 Dependence on renal dialysis; Z91.81 History of falling; Z89.511 Acquired absence of right leg below knee; Z91.15 Patient's noncompliance with renal dialysis; Z91.19 Patient's noncompliance with other medical treatment and regimen; Z83.3 Family history of diabetes mellitus; Z82.49 Family history of ischemic heart disease and other diseases of the circulatory system; Z83.438 Family history of other disorder of lipoprotein metabolism and other lipidemia
CPT/HCPCS: 36415; 36600; 70450; 70544; 70547; 70551; 71045; 72125; 74230; 80048; 80053; 80061; 80069; 82040; 82330; 82378; 82550; 82803; 82948; 83036; 83605; 83735; 83880; 84100; 84145; 84146; 84443; 84484; 85025; 85027; 85610; 85651; 85730; 86140; 86704; 86706; 87040; 87324; 87340; 87635; 87804; 90935; 92522; 92526; 92610; 92611; 93005; 93306; 93356; 93880; 96374; 97039; C9803; G0378; J0696; J1450; J1644; J1815; J2543; J3370; J3490; J7070